=== PATIENT | male | born 1995 | race Caucasian/White ===

== ENCOUNTER 2018-07-31 19:17 | Emergency (ER) | payer BC ==
[~2018-07-31] VITALS: Ht 177.8 cm; Wt 79.4 kg
[2018-07-31 19:35] VITALS: BP 124/62
--- NOTE | 2018-07-31 20:07 | RAD ---
3 views right fifth finger dated 07/31/2018. No comparison available. Clinical data indication: Pain after injury. FINDINGS: 3 views right fifth finger show normal bony alignment. No displaced fracture. Small radiolucent line at the base of the fifth distal phalanx along the radial side is seen on only one view. No displaced fracture. There is old healed fracture deformity of the fifth metacarpal status post plate and screw fixation. There is a small bony fragment along the ulnar side of the fifth MCP joint, likely remote avulsion or loose body. IMPRESSION: 1. Possible small nondisplaced fracture at the base of fifth distal phalanx versus artifact. 2. Otherwise no acute findings. Electronically signed by: Amari Garcia MD (07/31/2018 8:03 PM) [facility]
--- NOTE | 2018-07-31 20:29 | PHYS DOC ---
Past Medical History Past Medical History: Other Additional Past Medical Histor: drug abuse Past Surgical History: Other Additional Past Surgical Histo: BILAT HAND Additional Information: "1/2 PACK DAILY" Alcohol Use: Heavy Drug Use: Marijuana, Methamphetamine Adult General Chief Complaint Chief Complaint: FINGER INJURY HPI HPI Patient is a 22 year old male who presents to the ER with complaints of R hand 5th digit pain and laceration after smashing his finger while using a forklift. Pt denies any numbness or tingling complaints, he is unsure of when his last tetanus immunization was. Review of Systems Review of Systems Constitutional: Denies fever or chills [] Musculoskeletal: See HPI Integument: See HPI Neurologic: Denies focal weakness or sensory changes [] Complete systems were reviewed and found to be within normal limits, except as documented in this note. Current Medications Current Medications Current Medications Medications (Trade) Dose Ordered Sig/Sadia Start Time Stop Time Status Last Admin Dose Admin Diphtheria/ Tetanus/Acell Pertussis (Boostrix) 0.5 ml ONCE ONCE 07/31/18 21:00 07/31/18 21:00 DC 07/31/18 20:42 0.5 ML Lidocaine HCl (Xylocaine-Mpf 1% 2ml Vial) 4 ml 1X ONCE 07/31/18 20:30 07/31/18 20:31 DC 07/31/18 20:09 4 ML Neomycin/ Polymyxin/ Bacitracin (Triple Antibiotic Ointment) 1 pkt 1X ONCE 07/31/18 20:30 07/31/18 20:31 DC 07/31/18 20:09 1 PKT Allergies Allergies Allergies Coded Allergies Type Severity Reaction Last Updated Verified amoxicillin Allergy Intermediate 02/01/15 No clavulanic acid Allergy Intermediate 02/01/15 No Physical Exam Physical Exam Constitutional: Well developed, well nourished, no acute distress, non-toxic appearance. [] HENT: Normocephalic, atraumatic, bilateral external ears normal, nose normal. [] Eyes: conjunctiva normal, no discharge. [] Skin: Warm, dry, 1 cm laceration to palmar aspect of 5th digit distal to DIP Extremities: No cyanosis, no clubbing, ROM intact, mild swelling and tenderness to distal end of R hand 5th digit Neurologic: Alert and oriented X 3, normal motor function, normal sensory function, no focal deficits noted. [] Psychologic: Affect normal, judgement normal, mood normal. [] Current Patient Data Vital Signs Vital Signs Date Time Temp Pulse Resp B/P (MAP) Pulse Ox O2 Delivery O2 Flow Rate FiO2 07/31/18 19:35 98.4 84 20 124/62 (82) 98 Room Air 98.4 EKG EKG [] Radiology/Procedures Radiology/Procedures [] Course & Med Decision Making Course & Med Decision Making Pertinent Labs and Imaging studies reviewed. (See chart for details) [] Dragon Disclaimer Dragon Disclaimer This electronic medical record was generated, in whole or in part, using a voice recognition dictation system. Departure Departure Impression: Primary Impression: Laceration of finger Additional Impression: Need for Tdap vaccination Disposition: HOME, SELF-CARE Condition: STABLE Referrals: NO PCP (PCP) Patient Instructions: Fingertip Laceration, VIS, Tetanus, Diphtheria, and Pertussis (Tdap) - [facility] Additional Instructions: Sutures out in 10-14 days, wear the aluminum finger splint applied until sutures are removed. Dressing changes twice daily and as needed. Follow up with PCP or return to ER for suture removal sooner if signs of infection including redness, warmth, swelling, or drainage. Splinting Splinting : Location: R hand 5th digit Pre-Made Type: metal Splint: aluminum finger Pre-Proc Neuro Vasc Exam: normal Post-Proc Neuro Vasc Exam: normal, unchanged from pre-exam Laceration/Wound Repair Laceration/Wound Repair : Wound Location: upper extremity (5th digit R hand ) Wound's Depth, Shape: superficial Wound Length (cm): 1 Wound Explored: clean Irrigated w/ Saline (ccs): 30 Betadine Prep?: Yes Anesthesia: 1% Lidocaine Volume Anesthetic (ccs): 2 Wound Debrided: minimal Wound Repaired With: sutures Suture Size/Type: 4:0 (ethilon) Number of Sutures: 3 Layer Closure?: No Splint Applied?: Yes (aluminum finger splint) Sling Applied?: No Problem Qualifiers Primary Impression: Laceration of finger Encounter type: initial encounter Finger: little finger Damage to nail status: without damage Foreign body presence: without foreign body Laterality: right Qualified Codes: S61.216A - Laceration without foreign body of right little finger without damage to nail, initial encounter REINALDO MERCEDES ASSISTANT PORTFOLIO MANAGER Jul 31, 2018 20:29
[2018-07-31] MEDS ORDERED: LIDOCAINE 1% PF 2 ML VIAL. INJ ONE (20:30)
[2018-07-31] MEDS ORDERED: NEOMY/BACITR/POLYMYXIN OINT PACKET. TP ONE (20:30)
[2018-07-31] MEDS ORDERED: DIPHTH,PERTUSS(ACELL),TET TOX 0.5 ML DISP.SYRIN. VAX IM ONE (21:00)
== END 2018-07-31 20:39 | disposition home or self-care (01) ==
LOC: ER 19:17
DX: S61.216A Laceration without foreign body of right little finger without damage to nail, initial encounter (principal); F17.200 Nicotine dependence, unspecified, uncomplicated; F10.20 Alcohol dependence, uncomplicated; Y90.9 Presence of alcohol in blood, level not specified; Z88.1 Allergy status to other antibiotic agents; W23.0XXA Caught, crushed, jammed, or pinched between moving objects, initial encounter; Y93.89 Activity, other specified; Y92.89 Other specified places as the place of occurrence of the external cause; Y99.8 Other external cause status
CPT/HCPCS: 12001; 73140; 90471; 90715; 99283

== ENCOUNTER 2021-05-17 20:31 | Emergency (ER) | payer BC ==
[~2021-05-17] VITALS: Ht 175.3 cm; Wt 72.7 kg
[2021-05-17 22:39] VITALS: BP 116/82
--- NOTE | 2021-05-17 22:50 | PHYS DOC ---
Past Medical History Past Medical History: Other Additional Past Medical Histor: drug abuse (ANIKA GUPTA APRN) Past Surgical History: Other Additional Past Surgical Histo: BILAT HAND (ANIKA GUPTA APRN) Smoking Status: Current Every Day Smoker Alcohol Use: Heavy Drug Use: Marijuana, Methamphetamine (ANIKA GUPTA APRN) General Adult EDM: Chief Complaint: ALCOHOL INTOXICATION HPI: HPI: Patient is a 25 year old male who presents to the emergency department brought in by EMS for having a verbal altercation with the local Police Department. Patient is not under arrest. It was recommended he be brought here because he seems to be under the influence of alcohol or other illicit drugs. Patient states he was drinking vodka today and hanging out in his front yard when the police department decided to come messed with him. Patient denies any other physical complaints or physical concerns. Patient denies homicidal or suicidal ideation. Patient states he does not wish to be seen in the emergency department today. Patient reports he wishes to go home. (ANIKA GUPTA APRN) Review of Systems: Review of Systems: 14 body systems of review of systems have been reviewed. See HPI for pertinent positives and negative responses, otherwise all other systems are negative, nonpertinent or noncontributory. Constitutional: Negative except as outlined in HPI above. Skin: Negative except as outlined in HPI above. Eyes: Negative except as outlined in HPI above. HENT: Negative except as outlined in HPI above. Respiratory: Negative except as outlined in HPI above. Cardiovascular: Negative except as outlined in HPI above. GI: Negative except as outlined in HPI above. : Negative except as outlined in HPI above. Musculoskeletal: Negative except as outlined in HPI above. Integument: Negative except as outlined in HPI above. Neurologic: Negative except as outlined in HPI above. Endocrine: Negative except as outlined in HPI above. Lymphatic: Negative except as outlined in HPI above. Psychiatric: Negative except as outlined in HPI above. (ANIKA GUPTA APRN) Heart Score: C/O Chest Pain: No Risk Factors: Risk Factors: DM, Current or recent (<one month) smoker, HTN, HLP, family history of CAD, obesity. Risk Scores: Score 0 - 3: 2.5% MACE over next 6 weeks - Discharge Home Score 4 - 6: 20.3% MACE over next 6 weeks - Admit for Clinical Observation Score 7 - 10: 72.7% MACE over next 6 weeks - Early Invasive Strategies (ANIKA GUPTA APRN) Allergies: Allergies: Allergies Coded Allergies Type Severity Reaction Last Updated Verified amoxicillin Allergy Intermediate 02/01/15 No clavulanic acid Allergy Intermediate 02/01/15 No (ANIKA GUPTA APRN) Physical Exam: PE: Constitutional: Well developed, well nourished, no acute distress, non-toxic appearance. 25-year-old male in no apparent distress. HENT: Normocephalic, atraumatic. Eyes: Conjunctiva normal, no discharge. Neck: Normal range of motion, no stridor. Cardiovascular: No cyanosis appreciated, distal cap refill less than 2 seconds. Lungs & Thorax: Patient is in no respiratory distress, no audible adventitious lung sounds appreciated. Abdomen: Nontender, no abnormalities noted. Skin: Warm, dry, no erythema, no rash. Back: No tenderness, no deformities. Extremities: No tenderness, no cyanosis, no clubbing, ROM intact, no edema. Neurologic: Alert and oriented X 3, normal motor function, normal sensory function, no focal deficits noted. Psychologic: Affect normal, judgement normal, mood normal. (ANIKA GUPTA APRN) Current Patient Data: Vital Signs: Vital Signs Date Time Temp Pulse Resp B/P (MAP) Pulse Ox O2 Delivery O2 Flow Rate FiO2 05/17/21 20:31 97.9 88 16 110/55 (73) 98 Room Air 97.9 (ANIKA GUPTA APRN) EKG: EKG: [] (ANIKA GUPTA APRN) Radiology/Procedures: Radiology/Procedures: [] (ANIKA GUPTA APRN) Course & Med Decision Making: Course & Med Decision Making Pertinent Labs and Imaging studies reviewed. (See chart for details) 25-year-old male, vital signs reviewed, presents to the emergency department concerning drinking alcohol at home and being brought in by EMS at the local Police Department's request. Patient physical examination unremarkable, the patient does have smell of EtOH on breath however is clinically sober at this time. Patient is calm and cooperative, acting appropriate. Will give patient cab ride to home. Patient remains clinically sober, acting appropriate at time of discharge. Patient is asking to go home. Patient refuses any further emergency department care or evaluation. Patient given a cab ride to home. Discussed with the patient all findings and diagnostic testing as well as the need to follow-up with their primary care provider for further evaluation and treatment or return to the ED if any new or worsening symptoms. Strict return p recautions were also discussed at length, the patient voiced understanding and agreement with the discharge planning. The patient was nontoxic in appearance, in no apparent distress, and hemodynamically stable at the time of disposition. (ANIKA GUPTA APRN) Course & Med Decision Making I was the Attending physician on the above date of service of this patient. This patient was evaluated, examined, treated, and dispositioned from the emergency department by the mid-level practitioner. Although I was working at the time , no assistance was requested. Electronically signed, Susana Oswald DO (SUSANA OSWALD DO) Dragon Disclaimer: [place] Disclaimer: This electronic medical record was generated, in whole or in part, using a voice recognition dictation system. (ANIKA GUPTA APRN) Departure Departure Impression: Primary Impression: Alcoholism Disposition: 01 HOME / SELF CARE / HOMELESS Condition: GOOD Referrals: NO PCP (PCP) Patient Instructions: Alcohol Problems Additional Instructions: You were seen today in the emergency department after drinking vodka at home. You are clinically sober and able to make your own educated healthcare decisions. You have elected to be discharged home. I feel it is safe for you to go home. Please return to the emergency department for worsening symptoms or other concerns. Thank you for visiting our Emergency Department. It was a pleasure taking care of you today in the emergency department and we appreciate you trusting us with your care. If any additional problems come up don't hesitate to return to visit us. Please follow up with your primary care provider so they can plan additional care if needed and know about the problem that you had. If symptoms worsen come back to the Emergency Department. Any concerning symptoms that start such as chest pain, shortness of air, weakness or numbness on one side of the body, running high fevers or any other concerning symptoms return to the ER. ANIKA GUPTA APRN May 17, 2021 22:50 SUSANA OSWALD DO May 18, 2021 17:59
== END 2021-05-17 22:55 | disposition home or self-care (01) ==
LOC: ER 20:31
DX: F10.20 Alcohol dependence, uncomplicated (principal); F17.200 Nicotine dependence, unspecified, uncomplicated; Z88.1 Allergy status to other antibiotic agents; Y90.9 Presence of alcohol in blood, level not specified
CPT/HCPCS: 99285-25

== ENCOUNTER 2021-07-01 19:32 | Emergency (ER) | payer BC, MEDICAID ==
[~2021-07-01] VITALS: Ht 167.6 cm; Wt 77.9 kg
[2021-07-01] MEDS ORDERED: ONDANSETRON ODT 4 MG TAB.RAPDIS. PO ONE (19:45)
--- NOTE | 2021-07-01 19:51 | PHYS DOC ---
Past Medical History Past Medical History: Other Additional Past Medical Histor: drug abuse Past Surgical History: Other Additional Past Surgical Histo: BILAT HAND Smoking Status: Current Every Day Smoker Alcohol Use: Heavy Drug Use: Marijuana, Methamphetamine General Adult EDM: Chief Complaint: MEDICAL CLEARANCE HPI: HPI: Patient is a 25-year-old male who presents to the emergency department today for medical clearance. Patient was in PD custody when he stated that he started a new psych med, Seroquel 2 weeks ago and he has been drinking today and has started having lightheadedness, diarrhea, nausea and lower abdominal pain. He reports drinking 48 ounces of beer today. Patient denies any vomiting or fevers. He rates his pain 5 out of 10. No treatment prior to arrival. He also admits marijuana use today Review of Systems: Review of Systems: Constitutional: See HPI GI: See HPI Neurologic: See HPI Heart Score: C/O Chest Pain: N/A Risk Factors: Risk Factors: DM, Current or recent (<one month) smoker, HTN, HLP, family history of CAD, obesity. Risk Scores: Score 0 - 3: 2.5% MACE over next 6 weeks - Discharge Home Score 4 - 6: 20.3% MACE over next 6 weeks - Admit for Clinical Observation Score 7 - 10: 72.7% MACE over next 6 weeks - Early Invasive Strategies Allergies: Allergies: Allergies Coded Allergies Type Severity Reaction Last Updated Verified amoxicillin Allergy Intermediate 02/01/15 No clavulanic acid Allergy Intermediate 02/01/15 No Physical Exam: PE: Constitutional: Well developed, well nourished, no acute distress, non-toxic appearance. [] HENT: Normocephalic, atraumatic, bilateral external ears normal, oropharynx moist, no oral exudates, nose normal. [] Eyes: PERRLA, EOMI, conjunctiva normal, no discharge. [] Neck: Normal range of motion, no stridor Cardiovascular:Heart rate tachycardic rhythm, no murmur [] Lungs & Thorax: Bilateral breath sounds clear to auscultation [] Abdomen: Bowel sounds normal, soft, no tenderness, no masses, no pulsatile masses. [] Skin: Warm, dry, no erythema, no rash. [] Back: Normal range of motion Extremities: No tenderness, no cyanosis, no clubbing, ROM intact, no edema. [] Neurologic: Alert and oriented X 3, normal motor function, normal sensory function, no focal deficits noted. [] Psychologic: Affect normal, judgement normal, mood normal. [] Current Patient Data: Labs: Laboratory Tests Test 07/01/21 20:02 07/01/21 20:10 White Blood Count 11.5 x10^3/uL Red Blood Count 5.16 x10^6/uL Hemoglobin 16.4 g/dL Hematocrit 47.3 % Mean Corpuscular Volume 92 fL Mean Corpuscular Hemoglobin 32 pg Mean Corpuscular Hemoglobin Concent 35 g/dL Red Cell Distribution Width 13.3 % Platelet Count 322 x10^3/uL Neutrophils (%) (Auto) 65 % Lymphocytes (%) (Auto) 27 % Monocytes (%) (Auto) 5 % Eosinophils (%) (Auto) 2 % Basophils (%) (Auto) 1 % Neutrophils # (Auto) 7.5 x10^3/uL Lymphocytes # (Auto) 3.1 x10^3/uL Monocytes # (Auto) 0.6 x10^3/uL Eosinophils # (Auto) 0.2 x10^3/uL Basophils # (Auto) 0.1 x10^3/uL Sodium Level 138 mmol/L Potassium Level 3.5 mmol/L Chloride Level 105 mmol/L Carbon Dioxide Level 22 mmol/L Anion Gap 11 Blood Urea Nitrogen 7 mg/dL Creatinine 1.1 mg/dL Estimated GFR (Cockcroft-Gault) 81.6 BUN/Creatinine Ratio 6 Glucose Level 106 mg/dL Calcium Level 8.2 mg/dL Total Bilirubin 0.4 mg/dL Aspartate Amino Transf (AST/SGOT) 23 U/L Alanine Aminotransferase (ALT/SGPT) 32 U/L Alkaline Phosphatase 73 U/L Total Protein 6.7 g/dL Albumin 3.8 g/dL Albumin/Globulin Ratio 1.3 Lipase 57 U/L Ethyl Alcohol Level 89 mg/dL Urine Collection Type Void Urine Color Yellow Urine Clarity Clear Urine pH 6.5 Urine Specific [place] <=1.005 Urine Protein Negative mg/dL Urine Glucose (UA) Negative mg/dL Urine Ketones (Stick) Negative mg/dL Urine Blood Negative Urine Nitrite Negative Urine Bilirubin Negative Urine Urobilinogen Dipstick 0.2 mg/dL Urine Leukocyte Esterase Negative Urine RBC 0 /HPF Urine WBC 0 /HPF Urine Squamous Epithelial Cells Occ /LPF Urine Bacteria 0 /HPF Urine Opiates Screen Neg Urine Methadone Screen Neg Urine Barbiturates Neg Urine Phencyclidine Screen Neg Urine Amphetamine/Methamphetamine Neg Urine Benzodiazepines Screen Neg Urine Cocaine Screen Neg Urine Cannabinoids Screen Pos Urine Ethyl Alcohol Pos Current Medications Medications (Trade) Dose Ordered Sig/Sadia Route PRN Reason Start Time Stop Time Status Last Admin Dose Admin Ondansetron HCl (Zofran Odt) 4 mg 1X ONCE PO 07/01/21 19:45 07/01/21 19:48 DC 07/01/21 20:08 EKG: EKG: [] Radiology/Procedures: Radiology/Procedures: [] Course & Med Decision Making: Course & Med Decision Making Pertinent Labs and Imaging studies reviewed. (See chart for details) Patient is being seen in the emergency department today for medical clearance. While in PD custody, he was reporting nausea, diarrhea and dizziness x2 weeks. He believes that this is due to drinking 48 ounces of beer along with taking his Seroquel today. Work-up in the ER consisted of blood work and urinalysis. Patients abdominal exam was benign without any rigidity, tenderness, or guarding. Patient was treated with oral fluids and Zofran. Patient has not vomited while in ER, Patient is asleep. His heart rate has improved and is 80bpm. His vital signs are stable and he is in no acute distress. Patient advised to follow-up with his primary care provider or whoever prescribes his Seroquel. I discussed with patient all findings and diagnostic testing as well as the need to follow-up with PCP for further evaluation and treatment or return to the ER if any new or worsening symptoms. Strict return precautions were also discussed at length. Patient voiced understanding and agreement with the plan. Patient is hemodynamically stable at the time of disposition. Dragon Disclaimer: Dragon Disclaimer: This electronic medical record was generated, in whole or in part, using a voice recognition dictation system. Departure Departure Impression: Primary Impression: Medical clearance for incarceration Additional Impression: Nausea Disposition: HOME / SELF CARE / HOMELESS Condition: GOOD Referrals: NO PCP (PCP) Patient Instructions: Abdominal Pain Additional Instructions: You were seen in the emergency department for nausea, diarrhea, dizziness and lower abdominal pain x2 weeks that you believe was due to starting your Seroquel and drinking alcohol with it. Your lab work was unremarkable. Please increase your fluids. You can follow-up with your primary care provider or whoever prescribes your Seroquel regarding your symptoms. Return to the emergency department if you develop intractable nausea or vomiting, blood in your stools or vomit, dizziness, syncope, chest pain, shortness of breath, worsening of your abdominal pain. EMERGENCY DEPARTMENT GENERAL DISCHARGE INSTRUCTIONS Thank you for coming to [facility] Emergency Department (ED) today and trusting us with you care. We trust that you had a positive experience in our Emergency Department. If you wish to speak to the department management, you may call the Director at [phone]. YOUR FOLLOW UP INSTRUCTIONS ARE FOLLOWS: 1. Do you have a private Doctor? If you do not have a private doctor, please ask for a resource list of physicians or clinics that may be able to assist you with follow up care. 2. The Emergency Physicain has interpreted your x-rays. The X-Ray specialist will also review them. If there is a change in the findings, you will be notified in 48 hours when at all possible. 3. A lab test or culture has been done, your results will be reviewed and you will be notified if you need a change in treatment. ADDITIONAL INSTRUCTIONS AND INFORMATION: 1. Your care today has been supervised by a physician who is specially trained in emergency care. Many problems require more than one evaluation for a complete diagnosis and treatment. We recommend that you schedule your follow up appointment as recommended to ensure complete treatment of you illness or injury. If you are unable to obtain follow up care and continue to have a problem, or if your condition worsens, we recommend that you return to the ED. 2. We are not able to safely determine your condition over the phone nor are we able to give sound medical advice over the phone. For these safety reasons, if you call for medical advice we will ask you to come to the ED for further evaluation. 3. If you have any questions regarding these discharge instructions please call the ED at [phone]. SAFETY INFORMATION: In the interest of safety, wellness, and injury prevention; we encourage you to wear your sealbelt, if you smoke; quite smoking, and we encourage family to use a protective helmet for bicycling and other sporting events that present an increased risk for head injury. IF YOUR SYMPTOMS WORSEN OR NEW SYMPTOMS DEVELOP, OR YOU HAVE CONCERNS ABOUT YOUR CONDITION; OR IF YOUR CONDITION WORSENS WHILE YOU ARE WAITING FOR YOUR FOLLOW UP APPOINTMENT; EITHER CONTACT YOUR PRIMARY CARE DOCTOR, THE PHYSICIAN WHOSE NAME AND NUMBER YOU WERE GIVEN, OR RETURN TO THE ED IMMEDIATELY. BELINDA LOUIS GUMMED TAPE PRESS OPERATOR Jul 01, 2021 19:51
[2021-07-01 20:08] LABS: BASO # 0.1 x10^3/uL (0.0-0.2); BASO % 1 % (0-3); EOS # 0.2 x10^3/uL (0.0-0.7); EOS % 2 % (0-3); HEMATOCRIT 47.3 % (39.0-53.0); HEMOGLOBIN 16.4 g/dL (13.0-17.5); LYMPH # 3.1 x10^3/uL (1.0-4.8); LYMPH % 27 % (24-48); MEAN CORPUSCULAR HEMOGLOBIN 32 pg (25-35); MEAN CORPUSCULAR HGB CONC 35 g/dL (31-37); MEAN CORPUSCULAR VOLUME 92 fL (79-100); MONO # 0.6 x10^3/uL (0.0-1.1); MONO % 5 % (0-9); NEUT # 7.5 x10^3/uL (1.8-7.7); NEUT % 65 % (31-73); PLATELET COUNT 322 x10^3/uL (140-400); RED BLOOD COUNT 5.16 x10^6/uL (4.30-5.70); RED CELL DISTRIBUTION WIDTH 13.3 % (11.5-14.5); WHITE BLOOD COUNT 11.5 x10^3/uL (4.0-11.0)
[2021-07-01 20:16] LABS: BILIRUBIN,URINE NEGATIVE (NEG); CLARITY,URINE CLEAR; COLOR,URINE YELLOW; NITRITE,URINE NEGATIVE (NEG); PH,URINE 6.5 (<5.0-8.0); PROTEIN,URINE NEGATIVE (NEG-TRACE); UROBILINOGEN,URINE 0.2 mg/dL (0.2 mg/dL)
[2021-07-01 20:22] LABS: CALCIUM 8.2 mg/dL (8.5-10.1); CREATININE 1.1 mg/dL (0.7-1.3); GFR 81.6; POTASSIUM 3.5 mmol/L (3.5-5.1)
[2021-07-01 20:23] LABS: BACTERIA,URINE 0 /HPF (0-FEW); RBC,URINE 0 /HPF (0-2); WBC,URINE 0 /HPF (0-4)
[2021-07-01 20:28] LABS: BARBITURATES NEG (NEG); BENZODIAZEPINES NEG (NEG); CANNABINOIDS POS (NEG); COCAINE NEG (NEG); METHADONE NEG (NEG); OPIATES NEG (NEG); PHENCYCLIDINE NEG (NEG)
[2021-07-01 20:29] LABS: AMPHETAMINE/METHAMPHETAMINE NEG (NEG)
[2021-07-01 20:29] LABS: ALBUMIN 3.8 g/dL (3.4-5.0); ALBUMIN/GLOBULIN RATIO 1.3 (1.0-1.7); TOTAL BILIRUBIN 0.4 mg/dL (0.2-1.0); TOTAL PROTEIN 6.7 g/dL (6.4-8.2)
[2021-07-01 20:39] VITALS: BP 98/61
== END 2021-07-01 20:45 | disposition home or self-care (01) ==
LOC: EEVIPCON 19:32 → ER 19:32
DX: R11.0 Nausea; F17.200 Nicotine dependence, unspecified, uncomplicated; R42 Dizziness and giddiness; R19.7 Diarrhea, unspecified; R10.30 Lower abdominal pain, unspecified; F10.20 Alcohol dependence, uncomplicated; Y90.1 Blood alcohol level of 20-39 mg/100 ml; Z88.1 Allergy status to other antibiotic agents; Z88.8 Allergy status to other drugs, medicaments and biological substances
CPT/HCPCS: 36415; 80053; 80307; 81001; 83690; 85025; 99283; G0480